=== PATIENT | male | born 1985 ===

== ENCOUNTER 2025-01-25 06:00 | Day surgery (SDC) | payer OTHER ==
[2025-01-19 13:42] VITALS: BP 112/74
[~2025-01-25] VITALS: Ht 167.6 cm; Wt 122.5 kg
[~2025-01-25 06:00] MED LIST: [UNRECOGNIZED DRUG - OTHER] PO
[2025-01-25] MEDS ORDERED: LIDOCAINE HCL 1%/EPINEPHRINE 20ML VIAL IJ ONE (06:46)
[2025-01-25] MEDS ORDERED: CEFAZOLIN SODIUM 1,000 MG VIAL ONE (06:46)
[2025-01-25] MEDS ORDERED: HEPARIN SODIUM,PORCINE/PF 100 UNIT/ML SYRINGE IV ONE (06:54)
[2025-01-25] MEDS ORDERED: TRAM1TAB98 PO (08:24)
[2025-01-25] MEDS ORDERED: BUPIVACAINE HCL/PF 0.25% 30ML VIAL InF ONE (12:15)
== END 2025-01-25 10:50 | disposition home or self-care (01) ==
LOC: CIR.AMB 06:00
PROVIDERS: ATTEND Surgery
DX: C20 Malignant neoplasm of rectum (principal); Z88.6 Allergy status to analgesic agent
CPT/HCPCS: 36561; C1751